=== PATIENT | female | born 1980 | race Caucasian/White ===

== ENCOUNTER 2016-04-15 09:33 | Emergency (ER) | payer OTHER ==
[~2016-04-15] VITALS: Ht 170.2 cm; Wt 77.3 kg
[~2016-04-15 09:33] MED LIST: BUDE3CAP PO; CETI10CA PO; DICY10CA9 PO; LEVO50TA83 PO; NORG1TAB3 PO; OMPR20CCR PO; RANI150T13 PO
[2016-04-15 09:37] VITALS: BP 125/88; PULSE 79; RESP 12; O2SAT 96
[2016-04-15] MEDS ORDERED: 0.9% Sodium Chloride 1,000 ML IV ONE ×2 (09:42→11:20)
--- NOTE | 2016-04-15 09:42 | ED.REPORT ---
HPI-Abd Pain F Under 40 Date of Service Apr 15, 2016 ED Provider: Dimitrios Devine MD This is a 35 year old female with a history of Crohn's presenting to the emergency department complaining of R flank pain that began 8 days ago. Reportedly diagnosed with pyelonephritis 10 days ago at urgent care and started on ciprofloxacin, completed course yesterday. Pain has persisted, she had a second urgent care visit, pt was told to complete antibiotics. R flank pain continues to persist and is constant although it worsens intermittently. Also reports nausea. Denies dysuria, hematuria, urinary frequency, hematochezia, abdominal vaginal discharge, or history of STIs. LMP 03/23/2016, she uses an IUD. She had a contrast abd/pelvis CT at urgent care indicatin. Kidneys demonstrate normal enhancement without definitive findings of pyelonephritis. Nursing Notes Stated Complaint: ABDOMINAL PAIN/NAUSEA Chief Complaint: Female Abdominal Pain Nursing Notes Reviewed: Yes Allergies: Coded Allergies: ibuprofen (Verified Allergy, Severe, pain, 12/18/12) Scheduled Budesonide-Expunged Drug, Do Not Renew! (Entocort EC-Expunged Drug, Do Not Renew !) 3 Mg Capsule 9 MG PO QAM TAKE X 30 DAYS - INITIAL CROHN'S THERAPY 9 MG/DAY FOR UP TO 8 WEEKS Budesonide-Expunged Drug, Do Not Renew! (Entocort EC-Expunged Drug, Do Not Renew !) 3 Mg Capsule 6 MG PO DAILY TAKE 2 CAPS FOR 30 DAYS AFTER 3 CAPS FOR 30 DAYS - maintenance of Crohn's disease Budesonide-Expunged Drug, Do Not Renew! (Entocort EC-Expunged Drug, Do Not Renew !) 3 Mg Capsule 3 MG PO DAILY TAKE 1 CAP FOR 60 DAYS AFTER 3 CAPS X 30 DAYS & AFTER 2 CAPS X 30 DAYS - maintenance of Crohn's disease Cetirizine-Expunged Drug, Do Not Renew! (Cetirizine-Expunged Drug, Do Not Renew! ) 10 Mg Capsule 10 MG PO DAILY Dicyclomine-Expunged Drug, Do Not Renew! (Dicyclomine-Expunged Drug, Do Not Renew!) 10 Mg Capsule 10 MG PO BID Levothyroxine-Expunged Drug, Do Not Renew! (Synthroid-Expunged Drug, Do Not Renew!) 50 Mcg Tablet 50 MCG PO DAILY Norgestimate-Ethinyl Estradiol (Ortho Tri-Cyclen Lo) 7 Daysx 3 Lo Tablet 1 TAB PO DAILY Omeprazole-Expunged Drug, Do Not Renew! (Omeprazole-Expunged Drug, Do Not Renew! ) 20 Mg Capsule.dr 40 MG PO DAILYAC Ranitidine Hcl (Zantac) 150 Mg Tablet 150 MG PO DAILY General Time Seen by MD: 09:41 Chief Complaint Abdominal pain Hx Obtained From: Patient Arrived By: Walk-in Sudden in Onset?: Yes Onset Occurred: More than a week ago... Symptom Duration: Since onset Severity: Current: Mild Pertinent Negative: Pt denies other symptoms Recent Healthcare: No recent hospitalization, Recent doctor visit Similar Sx Previous: No Past Medical History Past Medical History Crohn's Disease Hypothyroidsim Past Surgical History Denies Ambulatory Status Independent Review of Systems Constitutional: Denies: Chills, Fever GI: Reports: Nausea, Denies: Abdominal pain, Constipation, Diarrhea, Vomiting Female: Reports: Flank pain, Denies: Dysuria, Hematuria, Incontinence, Pelvic pain, Urinary frequency, Vaginal bleeding - abnl Complete sys rev & neg: except as marked. Physical Exam Initial Vital Signs Vital Signs (First) Date Time Temp Pulse Resp B/P Pulse Ox O2 Delivery O2 Flow Rate FiO2 04/15/16 09:37 36.2 79 12 125/88 96 Room Air - Initial VS: Reviewed Head / Eyes: Atraumatic, Normocephalic, PERRL ENT: Mucous membranes moist, Conjunctiva normal, No scleral icterus Neck: Supple, Non-tender, Full range of motion Extremities: Vascular intact, Neuro intact, No swelling, No tenderness Skin: Warm, Dry, No cyanosis Neurologic: Alert, Oriented, Nonfocal Psychiatric: Mood/affect normal, Behavior normal, Normal thought content General/Constitutional: Awake, Alert, Well appearing Respiratory / Chest: Breath sounds NL, Breath sounds = bilat, No respiratory distress, No rales, No rhonchi, No wheezing Cardiovascular: Heart rate NL, Regular rhythm, Heart sounds NL, Peripheral circulation NL Abdomen: BS normoactive Tenderness/Guarding/Rebound: Positive: Tender RLQ... (Mild), Tender RUQ... ( Mild), Tender epigastric, Tender flank R Back: Inspection NL, Non-tender, No CVA tenderness Interpretation & Diagnostics US IMPRESSION: Normal abdominal ultrasound exam. 1. Normal gallbladder. 2. Normal kidneys. No hydronephrosis. Dictated by: Fuad Santos M.D. on 04/15/2016 at 11:46 Approved by: Fuad Santos M.D. on 04/15/2016 at 11:48 Lab Results Interpretation Result Diagram: 04/15/16 0954 04/15/16 0954 Test 04/15/16 09:54 04/15/16 12:46 White Blood Count 5.0th/mm3 (3.8-10.1) Red Blood Count 4.42mil/mm3 (3.90-5.20) Hemoglobin 13.0g/dL (12.0-15.6) Hematocrit 38.3% (35.0-46.0) Mean Corpuscular Volume 86.7fL (81-100) Mean Corpuscular Hemoglobin 29.4pg (27.0-35.0) Mean Corpuscular Hemoglobin Concent 33.9% (32.0-37.0) Red Cell Distribution Width 12.9% (12.3-15.4) Platelet Count 220bil/L (150-400) Neutrophils (%) (Auto) 56.4% (40-74) Lymphocytes (%) (Auto) 32.3% (14-46) Monocytes (%) (Auto) 9.7% (4-12) Eosinophils (%) (Auto) 1.0% (0-5) Basophils (%) (Auto) 0.4% (0-3) Sodium Level 136mEq/L (134-144) Potassium Level 4.0mEq/L (3.5-5.2) Chloride Level 103mEq/L (97-108) Carbon Dioxide Level 20mmol/L (18-29) Blood Urea Nitrogen 9mg/dL (6-20) Creatinine 0.65mg/dL (0.57-1.00) Estimat Glomerular Filtration Rate 149mL/min (>59) Glucose Level 117mg/dL (60-99) Calcium Level 8.7mg/dL (8.5-10.1) Total Bilirubin 0.3mg/dL (0.0-1.2) Aspartate Amino Transf (AST/SGOT) 84U/L (0-50) Alanine Aminotransferase (ALT/SGPT) 75U/L (0-32) Alkaline Phosphatase 76U/L (25-150) Total Protein 7.3g/dL (6.4-8.4) Albumin 4.3g/dL (3.4-5.0) Lipase 51U/L (13-60) Hold Lynn Top Tube Received (Received) Urine Color Straw (YELLOW) Urine Appearance Hazy (CLEAR,HAZY) Urine pH 6.0 (5.0-8.0) Urine Specific Lima 1.015 (1.003-1.035) Urine Protein Negativemg/dL (NEG,TRACE) Urine Glucose (UA) Negativemg/dL (NEGATIVE) Urine Ketones Negativemg/dL (NEGATIVE) Urine Occult Blood Negative (NEGATIVE) Urine Nitrite Negative (NEGATIVE) Urine Bilirubin Negative (NEGATIVE) Urine Urobilinogen Normalmg/dL (NORMAL) Urine Leukocyte Esterase Trace (NEGATIVE) Urine RBC 0-2/hpf (0-2) Urine WBC 0-5/hpf (0-5) Urine Epithelial Cells Occasional/hpf (NONE-MOD) Urine Crystals None seen (NONE SEEN) Urine Bacteria Moderate/hpf (NONE-FEW) Urine Hyaline Casts None/lpf (NONE) Urine Granular Casts None seen (NONE SEEN) Urine Waxy Casts None seen (NONE SEEN) Urine Red Blood Cell Casts None seen (NONE SEEN) Urine White Blood Cell Casts None seen (NONE SEEN) Urine Mucus None seen (None Seen) Urine Trichomonas None seen (NONE SEEN) Urine Yeast None (NONE SEEN) Urinalysis Comment None Urine Culture Reflexed Indicated Re-Eval/Medical Decision Med Decision/Clinical Course This is a 35 year old female with a history of Crohn's presenting to the emergency department complaining of R flank pain that began 8 days ago. Reportedly diagnosed with pyelonephritis 10 days ago at urgent care and started on ciprofloxacin, completed course yesterday. Pain has persisted, she had a second urgent care visit, pt was told to complete antibiotics. R flank pain continues to persist and is constant although it worsens intermittently. On examination the patient has mild progressive right flank tenderness though seems to have most notable tenderness in the right upper quadrant and epigastric region. Here in the emergency department the patient is afebrile with stable vital signs and in no apparent distress. Laboratory studies were notable as below: CBC unremarkable Mildly elevated transaminases, otherwise CMP normal Lipase within normal limits Urinalysis with many bacteria and trace leuk esterase and otherwise no signs of UTI and no blood negative Patient is quite vague and at this time examination most suggestive of gastritis /peptic ulcer disease versus biliary etiology though history more suggestive of possible renal colic. That being said kidney stone seems relatively unlikely given CT scan of the abdomen and pelvis that was unremarkable. That being said , it is possible that contrast study obscured presence of ureteral stone. Given vague presentation I offered to obtain ultrasound study as above which demonstrate no evidence of hydronephrosis, kidney stones, biliary pathology or other apparent etiology of her symptoms. At this time, the patient's laboratory studies are reassuring extensive workup including CT scan as well as ultrasound and laboratory studies as revealed no etiology of the patient's pain. Here in the emergency department she was treated with a GI cocktail and reported significant symptomatic improvement. Her urinalysis is relatively unremarkable in the setting of recent prolonged course of antibiotics ongoing UTI seems unlikely. I see no evidence of renal abscess which was another consideration at this time. There are no findings consistent with appendicitis and the patient is nontoxic in appearance. I feel that she is appropriate for discharge home though she will return immediately should she develop any worsening symptoms. She will follow up with her primary care physician in the next couple of days. Alternate precautions were given in detail patient verbalized understanding and agreement with the plan. Re-Evaluation/Progress : Time of Eval: 11:18 Re-Evaluation/Progress Note: Re-checked, symptoms resolved. Discussed normal lab and imaging results, plan for discharge, pt understands and agrees with plan, all questions addressed. Counseled Regarding: Diagnosis, Lab results, Need for follow-up, When/why to return to ED Discharge & Departure Primary Impression: Gastritis Additional Impressions: Right flank pain Urinary tract infection Urinary tract infection type: site unspecified Hematuria presence: without hematuria Qualified Code: N39.0 - Urinary tract infection, site not specified Epigastric abdominal pain Nausea Disposition: Home Discharge Condition All VS Reviewed: Yes Condition: Stable Patient Instructions: Gastritis (ED) Additional Instructions: Thank you for seeking care at emergency room. It is difficult for us to make definitive diagnoses in the ED but we believe that you are experiencing gastritis. Continue taking omeprazole as needed. Our primary goal today in the ED was to evaluate you for any life-threatening conditions. Your evaluation was reassuring. You should follow-up with your primary doctor and the GI specialist listed below , call tomorrow to schedule an appointment. You should return to the ED immediately if you develop fevers, vomiting, cough, shortness of breath, chest pain, lightheadedness, weakness or any other concerning signs or symptoms. Thank you for letting us partake in your care today. Referrals: Lesia Russell MD Scribe Attestation Portions of this note were transcribed by Diane Reynoso. I, Dr. Devine personally performed the history, physical exam and medical decision-making; I reviewed and confirmed the accuracy of the information in the transcribed note. Signed by: joshua Richardson. 04/15/2016, 11:30. Dimitrios Devine MD Apr 15, 2016 09:42 DIANE REYNOSO Apr 15, 2016 09:43
[2016-04-15] MEDS ORDERED: Ondansetron 2 mg/mL 2 mL Inj IVPUSH ONE (09:45)
[2016-04-15] MEDS ORDERED: Alum-Mag Hydrox-Simeth 30 mL Suspension PO ONE (10:00)
[2016-04-15 10:05] LABS: BASOPHILS % (AUTO) 0.4 % (0-3); MONOCYTES % (AUTO) 9.7 % (4-12); Mean Corpuscular Hemoglobin 29.4 pg (27.0-35.0); Mean Corpuscular Volume 86.7 fL (81-100); NEUTROPHILS % (AUTO) 56.4 % (40-74); Platelet Count 220 bil/L (150-400)
[2016-04-15] MEDS ORDERED: HYDROmorphone 0.5 mg/0.5 mL iSecure Syringe IVPUSH ONE (10:40)
[2016-04-15 11:43] VITALS: BP 116/75; PULSE 66; RESP 16; O2SAT 96
--- NOTE | 2016-04-15 11:50 | DRSVH ---
PROCEDURE: US ABDOMEN INDICATIONS: assess GB, hydronephrosis? TECHNIQUE: Real-time scanning was performed of the abdominal and retroperitoneal organs, with image documentatio n. COMPARISON: [facility], CT, CT ABD PELVIS W HAMZAH, 04/05/2016, 13:33. FINDINGS: Liver length: 17.88 cm Gallbladder Wall Thickness: 1.50 mm CHD: 3 mm CBD: 2.80 mm Spleen length: 11.23 cm Right kidney length: 12.54 cm Left kidney length: 12.69 cm Aorta(Proximal): 1.47 cm Aorta(Mid): 1.54 cm Aorta(Distal): 1.36 cm RCIA: 8.10 mm LCIA: 7.40 mm Liver: Liver is normal in size and homogeneous in echotexture. Gallbladder: No gallstones. No gallbladder wall thickening, pericholecystic fluid or sonographic Mu rphy's sign. Biliary ducts: Intrahepatic bile ducts are non-dilated. Extrahepatic bile duct caliber is normal. Normal is 6-7 mm or less in diameter, or 10 mm or less post-cholecystectomy. Pancreas: Visualized portions of the pancreas are sonographically normal. Spleen: Spleen is normal in size and homogeneous in echotexture. Kidneys: Kidneys are normal in size and echotexture. No hydronephrosis or nephrolithiasis. No grace d masses. Aorta: Visualized aorta is normal in caliber at less than 3 cm. Iliacs: Proximal common iliac arteries are normal in caliber at less than 2.5 cm. IVC: Intrahepatic inferior vena cava is patent. Miscellaneous: No free abdominal fluid. IMPRESSION: Normal abdominal ultrasound exam. 1. Normal gallbladder. 2. Normal kidneys. No hydronephrosis. Dictated by: Fuad Santos M.D. on 04/15/2016 at 11:46 Approved by: Fuad Santos M.D. on 04/15/2016 at 11:48
[2016-04-15 13:01] LABS: COLOR,URINE STRAW (YELLOW)
[2016-04-15 13:02] LABS: APPEARANCE,URINE HAZY (CLEAR,HAZY); OCCULT BLOOD,URINE NEGATIVE (NEGATIVE); UROBILINOGEN,URINE NORMAL (NORMAL)
[2016-04-15 13:24] VITALS: BP 120/81; PULSE 72; RESP 20; O2SAT 99
== END 2016-04-15 13:50 | disposition home or self-care (01) ==
LOC: SED 09:33
DX: K29.70 Gastritis, unspecified, without bleeding (principal); N39.0 Urinary tract infection, site not specified; R11.0 Nausea; K50.90 Crohn's disease, unspecified, without complications; E03.9 Hypothyroidism, unspecified; Z88.8 Allergy status to other drugs, medicaments and biological substances
CPT/HCPCS: 36415; 76700; 80053; 81000; 81025; 83690; 85025; 87086; 87088; 96361; 96374; 96375; 99285; J1170; J2405; J7030